=== PATIENT | male | born 1980 | race Caucasian/White ===

== ENCOUNTER 2018-03-15 13:09 | Outpatient (CLI) | payer BC | END 2018-03-15 13:10 | disposition home or self-care (01) | LOC: DTY/OP 13:09 | PROVIDERS: ATTEND Surgery | DX: E66.01 Morbid (severe) obesity due to excess calories (principal) | CPT/HCPCS: 97802 ==

== ENCOUNTER 2018-04-15 01:27 | Outpatient (CLI) | payer BC ==
[2018-04-15 12:46] LABS: #Basophils 0.1 thou/uL (0.0-0.2); #Eosinphils 0.2 thou/uL (0.0-0.7); #Lymphocytes 2.9 thou/uL (1.20-3.40); #Monocytes 0.7 thou/uL (0.11-0.59); #Neutrophils 3.8 thou/uL (1.40-6.50); %Basophils 1.4 % (0.0-1.0); %Eosinophils 2.9 % (0.0-10.0); %Lymphocytes 37.1 % (21.0-51.0); %Monocytes 9.3 % (0.0-10.0); %Neutrophils 49.4 % (42.0-75.0); Hemoglobin 15.2 g/dL (14.0-18.0); Mean Corpuscular HGB CONC 32.9 g/dL (32.0-36.0); Mean Corpuscular Hemoglobin 29.5 pg (27.0-31.0); Mean Corpuscular Volume 89.9 fL (78.0-98.0); Platelet Count 355 thou/uL (130-400); RBC Distribution Width 11.9 % (11.5-14.5); Red Blood Cell (RBC) Count 5.15 mill/uL (4.70-6.10); White Blood Cell (WBC) Count 7.7 thou/uL (4.8-10.8)
--- NOTE | 2018-04-15 12:55 | RAD ---
PA AND LATERAL CHEST: Indication: Pre-operative evaluation. Comparison: None. FINDINGS: There is focal eventration of the right hemidiaphragm. The lungs are clear. The heart size is normal. There is mild spondylosis of the thoracic spine. No acute osseous abnormality is evident. IMPRESSION: No acute cardiopulmonary abnormality. POS: [facility]
[2018-04-15 13:05] LABS: Hemoglobin A1c 8.1 % (4.0-6.0)
[2018-04-15 13:10] LABS: ALT (SGPT) 78 U/L (8-55); AST (SGOT) 57 U/L (5-34); Albumin 4.7 g/dL (3.5-5.0); Alkaline Phosphatase 86 U/L (40-150); Anion Gap 15 mmol/L (10-20); BUN (Urea Nitrogen) 18 mg/dL (8.9-20.6); Bilirubin, Direct 0.2 mg/dL (0.1-0.3); Bilirubin, Total 0.3 mg/dL (0.2-1.2); Calc. Creatinine Clearance 0 mL/min (70-130); Calcium 10.2 mg/dL (7.8-10.44); Carbon Dioxide 27 mmol/L (22-29); Chloride 99 mmol/L (98-107); Estimated GFR-MDRD 87; Globulin 2.8 g/dL (2.4-3.5); Glucose 148 mg/dL (70-105); Potassium 3.8 mmol/L (3.5-5.1); Protein, Total 7.5 g/dL (6.0-8.3); Sodium 137 mmol/L (136-145)
--- NOTE | 2018-04-15 17:10 | EKG ---
Test Reason : Blood Pressure : / mmHG Vent. Rate : 094 BPM Atrial Rate : 094 BPM P-R Int : 178 ms QRS Dur : 086 ms QT Int : 374 ms P-R-T Axes : 040 026 039 degrees QTc Int : 467 ms Normal sinus rhythm Cannot rule out Anterior infarct , age undetermined /Doubtful Abnormal ECG No previous ECGs available Confirmed by JOHANNA DAVID ([id number]) on 04/15/2018 5:09:55 PM Referred By: IRVING Confirmed By:JOHANNA DAVID
== END 2018-04-15 01:28 | disposition home or self-care (01) ==
LOC: LABBT 01:27
PROVIDERS: ATTEND Surgery
DX: Z01.818 Encounter for other preprocedural examination (principal); E66.01 Morbid (severe) obesity due to excess calories
CPT/HCPCS: 71046; 80053; 80076; 83036; 85025; 93005; 93010

== ENCOUNTER 2018-04-15 10:15 | Inpatient (IN) | payer BC ==
[2018-04-15 11:08] VITALS: BMI 42.5
[2018-04-21] MEDS ORDERED: Heparin 5,000 UNITS/ML VIAL ONE (06:28)
[2018-04-21] MEDS ORDERED: Levofloxacin 500 mg/D5W 100 ml Premix Bag ONE (06:28)
[2018-04-21] MEDS ORDERED: Fentanyl 100 MCG/2 ML VIAL ONE ×2 (06:33→09:20)
[2018-04-21] MEDS ORDERED: Bupivacaine/Epinephrine 0.25% 30 ML VIAL ONE (07:10)
[2018-04-21] MEDS ORDERED: Midazolam HCl 2 mg/2 ml Vial ONE (07:19)
[2018-04-21] MEDS ORDERED: hydrALAZINE 20 MG/ML VIAL SLOW IVP PRN (08:58)
[2018-04-21] MEDS ORDERED: diphenhydrAMINE 50 MG/ML VIAL IVP PRN ×2 (08:58→09:27)
[2018-04-21] MEDS ORDERED: Insulin Regular 300 UNITS/3 ML VIAL SC PRN (08:58)
[2018-04-21] MEDS ORDERED: Ondansetron PF 4 MG/2 ML Vial IVP PRN ×2 (08:58→09:27)
[2018-04-21] MEDS ORDERED: Promethazine HCl 25 MG/ML VIAL IM PRN ×3 (08:58→09:27)
[2018-04-21] MEDS ORDERED: Dextrose 5% in Water 1,000 ML IV PRN (08:58)
[2018-04-21] MEDS ORDERED: Dextrose 50% Abboject 50 ML SYRINGE SLOW IVP PRN (08:58)
[2018-04-21] MEDS ORDERED: Ondansetron HCl/PF 4 MG/2 ML Vial IVP PRN (09:08)
[2018-04-21] MEDS ORDERED: Promethazine HCl 25 MG/ML VIAL SLOW IVP PRN (09:08)
[2018-04-21] MEDS ORDERED: diphenhydrAMINE 25 MG CAP PO PRN (09:27)
[2018-04-21] MEDS ORDERED: diphenhydrAMINE 50 MG/ML VIAL IM PRN (09:27)
[2018-04-21] MEDS ORDERED: Zolpidem Tartrate 5 MG TAB PO PRN (09:27)
[2018-04-21] MEDS ORDERED: Naloxone HCl 0.4 mg/ml Vial IV PRN (09:27)
[2018-04-21] MEDS ORDERED: fentaNYL Citrate/PF 2,000 MCG in Sodium Chloride 0.9% 60 ML IV PRN (09:27)
[2018-04-21] MEDS ORDERED: Communication Order-Pharmacy FS SCH (09:30)
[2018-04-21] MEDS: 1/2 NS w/KCL 20 mEq 1,000 ML IV SCH ×3 (11:23→21:01)
[2018-04-21] MEDS: Enoxaparin Sodium 40 MG/0.4 ML SYRINGE SC SCH (11:24)
[2018-04-21] MEDS: Pantoprazole 40 MG VIAL IVP SCH (11:24)
--- NOTE | 2018-04-21 12:01 | OP ---
DATE OF PROCEDURE: 04/21/2018 PREOPERATIVE DIAGNOSIS: Morbid obesity. PROCEDURES PERFORMED: Laparoscopic sleeve gastrectomy with esophagogastroscopy. INDICATIONS: A 38-year-old male, morbidly obese, who has attempted multiple weight loss programs without success. Findings a 38-Kazakh bougie used. DESCRIPTION OF PROCEDURE: After informed consent was obtained, patient was taken to the operating room and given general endotracheal anesthesia, placed in the supine position. Abdomen was prepped and draped in usual fashion. Local anesthesia infiltrated subcutaneously and deep and a 12 mm incision was performed approximately 8 inches below the xiphoid slightly to the left. Veress needle inserted, drop test performed. Pneumoperitoneum was created to a volume of 2 L of carbon dioxide. Utilizing a bladeless 12-mm trocar and 0-degree laparoscope, direct visual entry into the abdominal cavity was performed. Pneumoperitoneum was then created to a pressure of 15 mmHg and the patient placed in steep reverse Trendelenburg position. Billy liver retractor inserted. Left lobe of the liver retracted superiorly. The pylorus identified and a 12 mm port placed on the right beneath it and two 12s placed left subcostal. The omentum was taken off the greater curvature 5 cm from the pylorus utilizing the LigaSure. Short gastrics divided with the LigaSure and the left crura defined with the LigaSure. A 38-K[place]akh bougie inserted, directed into the antrum. The linear 60 mm green load stapler used to divide the antrum to the bougie, gold load along the bougie, and a series of blues through the angle of His. Intraoperative endoscopy was performed, the video endoscope inserted under direct vision, advanced into the sleeve. The staple line inspected, there was no bleeding. Staple line then tested by inflating the new stomach with pressurized air and water, there was no air leak. Stomach decompressed. Scope removed. The remnants of stomach removed from the abdomen through the left lateral port site. The fascia closed with 0 Vicryl suture and the GraNee needle. Trocars and retractors removed. The skin closed with interrupted 4-0 Rapide. Dermabond applied. The patient tolerated the procedure well, transferred to Recovery in good condition. Sponge and needle count verified correct x2. Job ID: [id number]
[2018-04-21] MEDS ORDERED: Rocuronium Bromide 10 MG/ML (10ML VIAL) ONE (14:50)
[2018-04-21] MEDS ORDERED: ePHEDrine 50 MG/ML VIAL ONE (14:50)
[2018-04-21] MEDS ORDERED: Glycopyrrolate 0.2 MG/ML 5 ML SYRINGE ONE (14:50)
[2018-04-21] MEDS ORDERED: PROPOFOL 200 MG/20 ML VIAL ONE (14:50)
[2018-04-21] MEDS ORDERED: Ketorolac Tromethamine 30 MG/ML VIAL ONE (14:50)
[2018-04-21] MEDS ORDERED: Ondansetron PF 4 MG/2 ML Vial ONE (14:50)
[2018-04-21] MEDS ORDERED: PHENYLEPHRINE-NS 100 MCG/ML 10 ML SYRINGE ONE (14:50)
[2018-04-21] MEDS ORDERED: Lidocaine 1% PF 5 ML VIAL ONE (14:50)
[2018-04-22 05:51] LABS: #Lymphocytes 2.4 thou/uL (1.20-3.40); #Neutrophils 6.2 thou/uL (1.40-6.50); %Basophils 0.2 % (0.0-1.0); %Eosinophils 0.3 % (0.0-10.0); %Lymphocytes 25.2 % (21.0-51.0); %Monocytes 10.5 % (0.0-10.0); %Neutrophils 63.8 % (42.0-75.0); Hemoglobin 12.4 g/dL (14.0-18.0); Mean Corpuscular HGB CONC 31.6 g/dL (32.0-36.0); Mean Corpuscular Hemoglobin 29.6 pg (27.0-31.0); Mean Corpuscular Volume 93.5 fL (78.0-98.0); Mean Platelet Volume 6.9 fL (7.4-10.4); Platelet Count 317 thou/uL (130-400); RBC Distribution Width 12.1 % (11.5-14.5); White Blood Cell (WBC) Count 9.7 thou/uL (4.8-10.8)
[2018-04-22 06:15] LABS: Anion Gap 12 mmol/L (10-20); BUN (Urea Nitrogen) 11 mg/dL (8.9-20.6); Calc. Creatinine Clearance 258 mL/min (70-130); Calcium 8.6 mg/dL (7.8-10.44); Carbon Dioxide 24 mmol/L (22-29); Chloride 104 mmol/L (98-107); Estimated GFR-MDRD Greater than 90; Glucose 114 mg/dL (70-105); Potassium 4.1 mmol/L (3.5-5.1); Sodium 136 mmol/L (136-145)
--- NOTE | 2018-04-22 07:34 | PDOC.GSPN ---
Surgery Progress Note: Subj - Subjective Patient reports: afebrile, no bowel movement, no flatus, pain is less (4/10 in LUQ, improved with fentanyl) Narrative: Patient reports difficulty urinating overnight and nurses inserted a Goncalves catheter. He is tolerating ice chips. He is using SCDs, incentive spirometry, and ambulating well. He reports some lightheadedness with ambulation, but is able to ambulate with assistance. He has not had a bowel movement or flatus. He reports skin itching since using the soap 2 days ago, prior to surgery. Itching is worse after surgery. He states the itching is tolerable and does not want medication. He denies nausea, vomiting, fever, chills, dyspnea, leg swelling, or leg pain. Surgery Progress Note: Obj - Vital signs Vital signs: Vital Signs - Most Recent Temp Pulse Resp BP Pulse Ox 98.3 F 76 18 121/78 94 L 04/22/18 04:12 04/22/18 04:12 04/22/18 04:12 04/22/18 04:12 04/22/18 04:12 Intake/Output: In: 1500, Out: 550, Net: +[address] in place - Physical Exam General: no distress, well developed, well nourished, moderate pain, obese Cardiovascular: regular rate and rhythm, no murmur, other (No leg swelling or pain with palpation. Negative Emmanuel's Sign.) Respiratory: clear to auscultation, normal respiratory effort (No wheezing, rales, or rhonchi.) Abdomen: soft, non tender, nondistended, positive bowel sounds Hernia: none Wound: dressing clean,dry,intact (Covered in Dermabond) Surgery Progress Note: Results - Labs Result Diagrams: 04/22/18 05:02 04/22/18 05:02 Lab results: Laboratory Results - last 24 hr 04/21/18 04/22/18 04/22/18 21:07 05:02 05:02 WBC 9.7 RBC 4.20 L Hgb 12.4 L Hct 39.3 L MCV 93.5 MCH 29.6 MCHC 31.6 L RDW 12.1 Plt Count 317 MPV 6.9 L Neutrophils % 63.8 Lymphocytes % 25.2 Monocytes % 10.5 H Eosinophils % 0.3 Basophils % 0.2 Neutrophils # 6.2 Lymphocytes # 2.4 Monocytes # 1.0 H Eosinophils # 0.0 Basophils # 0.0 Sodium 136 Potassium 4.1 Chloride 104 Carbon Dioxide 24 Anion Gap 12 BUN 11 Creatinine 0.76 Estimated GFR (MDRD) Greater than 90 Glucose 114 H POC Glucose 128 H Calcium 8.6 Surgery Progress Note: A/P - Problem (1) Status post laparoscopic sleeve gastrectomy Current Visit: Yes Code(s): Z98.84 - BARIATRIC SURGERY STATUS Status: Acute - Plan Plan: - Continue fentanyl for pain - Advance diet as tolerated to clear liquids after GI follow-through - Continue incentive spirometry - Continue to encourage ambulation - Continue lovenox and SCDs for DVT prophylaxis
[2018-04-22] MEDS: Pantoprazole 40 MG VIAL IVP SCH (09:25)
[2018-04-22] MEDS: Enoxaparin Sodium 40 MG/0.4 ML SYRINGE SC SCH (09:25)
[2018-04-22] MEDS: Hydrocodone-Acetamin 15 ML UDCUP PO PRN ×2 (09:27→14:33)
--- NOTE | 2018-04-22 10:35 | RAD ---
UPPER GI WITH A 15 ML SWALLOW: HISTORY: Status post gastric bypass/vertical sleeve. EXPOSURE: 7 seconds 114.05 mGy FINDINGS: The patient was administered 15 mL of Gastrografin, which passed without difficulty. No leak or extr avasation. IMPRESSION: No leak or extravasation. POS: [facility]
[2018-04-22] MEDS ORDERED: GASTROGRAFIN 30 ML BOT ONE (10:39)
--- NOTE | 2018-04-22 12:13 | DIS ---
DATE OF ADMISSION: 04/21/2018 DATE OF DISCHARGE: 04/22/2018 DISCHARGE DIAGNOSES: 1. Morbid obesity. 2. Postoperative urinary retention. PROCEDURES DURING ADMISSION: Laparoscopic sleeve gastrectomy with intraoperative esophagogastroscopy,, postoperative Gastrografin swallow. HOSPITAL COURSE: The patient was admitted, taken to the operating room, where he underwent a sleeve gastrectomy. Postoperatively, he had difficulty urinating. Bladder scan showed more than 500 mL in the bladder. Catheter was placed. Bladder was rested overnight. He is now able to urinate some. He is tolerating liquids well. His x-ray was fine. He was discharged home on hydrocodone and Zofran and follow up with me in 2 weeks. Job ID: [id number]
[2018-04-22 12:44] VITALS: BP 106/71; TEMP 98.6
== END 2018-04-22 14:46 | disposition home or self-care (01) | DRG 621 ==
LOC: SURG A 04-21 05:57 → SURG B 04-21 10:18
PROVIDERS: ADMIT Surgery; ATTEND Surgery
PROC: 0DB64Z3 Excision of Stomach, Percutaneous Endoscopic Approach, Vertical (ICD-10-PCS; principal; 2018-04-21)
PROC: 0DJ68ZZ Inspection of Stomach, Via Natural or Artificial Opening Endoscopic (ICD-10-PCS; 2018-04-21)
PROC: 0T9B70Z Drainage of Bladder with Drainage Device, Via Natural or Artificial Opening (ICD-10-PCS; 2018-04-22)
DX: E66.01 Morbid (severe) obesity due to excess calories (principal); R33.9 Retention of urine, unspecified; Z68.41 Body mass index [BMI] 40.0-44.9, adult; F32.9 Major depressive disorder, single episode, unspecified; F41.9 Anxiety disorder, unspecified; E11.9 Type 2 diabetes mellitus without complications; E78.00 Pure hypercholesterolemia, unspecified; Z90.89 Acquired absence of other organs
CPT/HCPCS: 36415; 36416; 74241; 80048; 85025; 88307; 88312; C9113; J0131; J1644; J1650; J1815; J1885; J1956; J2001; J2250; J2405; J2704; J3010; J3480; J3490; J7050; Q9963